=== PATIENT | male | born 1970 | race Caucasian/White ===

== ENCOUNTER 2024-12-21 16:59 | Emergency (ER) | payer SELFPAY ==
[~2024-12-21] VITALS: Ht 167.6 cm; Wt 77.0 kg
[2024-12-21 17:06] VITALS: TEMP 36.5; O2SAT 98
[2024-12-21 18:02] VITALS: BP 138/90; PULSE 84; RESP 17; O2SAT 100
== END 2024-12-21 18:18 | disposition left against medical advice (07) ==
LOC: ER 16:59
DX: R10.9 Unspecified abdominal pain (principal)
CPT/HCPCS: 99284